=== PATIENT | female | born 1960 | race Caucasian/White ===

== ENCOUNTER → 2017-11-28 | Outpatient (CLI) | payer OTHER | LOC: LAB 15:41 | PROVIDERS: Nurse Practitioner Family | DX: Z01.419 Encounter for gynecological examination (general) (routine) without abnormal findings (principal) | CPT/HCPCS: G0145 ==

== ENCOUNTER 2018-02-16 11:55 | Day surgery (SDC) | payer OTHER ==
[~2018-02-16] VITALS: Ht 177.8 cm; Wt 81.7 kg
== END 2018-02-16 14:25 | disposition home or self-care (01) ==
LOC: ORSCSDS 11:55
PROVIDERS: Surgery
PROC: 0DJD8ZZ Inspection of Lower Intestinal Tract, Via Natural or Artificial Opening Endoscopic (ICD-10-PCS; principal; 2018-02-16 13:30)
DX: Z12.11 Encounter for screening for malignant neoplasm of colon (principal); K64.8 Other hemorrhoids; K75.9 Inflammatory liver disease, unspecified; Z87.891 Personal history of nicotine dependence; Z79.899 Other long term (current) drug therapy
CPT/HCPCS: J7120

== ENCOUNTER → 2018-12-17 | Outpatient (CLI) | payer OTHER ==
[2018-12-17 17:22] LABS: Red Blood Cells, Urine TNTC /hpf (0-2); Squamous Epithelial Cells Many /hpf (Few); White Blood Cells, Urine 25-50 /hpf (0-5)
[2018-12-17 17:23] LABS: Bacteria Mod /hpf
== END | disposition home or self-care (01) ==
LOC: LAB SHORT 17:01 → LAB EV 17:01
PROVIDERS: Physician Assistant
DX: R31.9 Hematuria, unspecified (principal)
CPT/HCPCS: 81015; 87086

== ENCOUNTER 2019-01-26 07:23 | Emergency (ER) | payer OTHER ==
[~2019-01-26] VITALS: Ht 177.8 cm; Wt 83.9 kg
[~2019-01-26 07:23] MED LIST: ATOR20; AZIT250; ONDA4ODT MM; Percocet 5-3251 EACH PO
[2019-01-26 08:39] LABS: BASOPHILS ABSOLUTE AUTO 0.07 K/mm3 (0.00-0.23); BASOPHILS PERCENT AUTO 1 % (0-2); EOSINOPHILS ABSOLUTE AUTO 0.18 K/mm3 (0.00-0.68); EOSINOPHILS PERCENT AUTO 2 % (0-6); Hematocrit 40.9 % (33.0-51.0); Hemoglobin 13.4 g/dL (11.5-16.0); IMMATURE GRAN ABSOLUTE AUTO 0.04 K/mm3 (0.00-0.10); IMMATURE GRAN PERCENT AUTO 0 % (0-1); LYMPHOCYTES ABSOLUTE AUTO 1.23 K/mm3 (0.84-5.20); LYMPHOCYTES PERCENT AUTO 11 % (21-46); MONOCYTES ABSOLUTE AUTO 0.54 K/mm3 (0.16-1.47); MONOCYTES PERCENT AUTO 5 % (4-13); Mean Corpuscular HGB 31.3 pg (26.0-34.0); Mean Corpuscular HGB Conc 32.8 g/dL (31.5-36.5); Mean Corpuscular Volume 96 fL (80-100); Mean Platelet Volume 9.9 fL (9.1-12.4); NEUTROPHILS PERCENT AUTO 81 % (41-73); Platelet Count 284 K/mm3 (150-400); RDW Standard Deviation 41.8 fL (35.1-46.3); Red Blood Cell Count 4.28 M/mm3 (3.80-5.20); White Blood Cell Count 10.86 K/mm3 (4.00-11.30)
[2019-01-26 08:57] LABS: Anion Gap 7 mmol/L (6-16); Blood Urea Nitrogen 12 mg/dL (8-24); Bun/Creatinine Ratio 15.9 (12.0-20.0); CO2, Blood 25 mmol/L (21-32); Calcium, Blood 8.5 mg/dL (8.5-10.1); Chloride, Blood 107 mmol/L (98-108); Creatinine, Blood 0.76 mg/dL (0.40-1.00); Glomerular Filtration Rate >60 (60-); Glucose, Blood 98 mg/dL (70-99); Sodium, Blood 139 mmol/L (136-145)
[2019-01-26 09:48] LABS: Source, Urine Clean Catch
[2019-01-26 09:52] LABS: Appearance, Urine Hazy (Clear); Bilirubin, Urine Neg (Neg); Blood, Urine 5+ (Neg); Color, Urine Yellow (P-Yellow); Glucose Qualitative, Urine Neg (Neg); Ketones, Urine Neg (Neg); Leukocyte Esterase, Urine 1+ (Neg); Nitrite, Urine Neg (Neg); Protein, Urine 2+ (Neg); Specific Gravity, Urine 1.015 (1.003-1.022); Urobilinogen, Urine NORM (Normal)
[2019-01-26 09:59] LABS: Bacteria Rare /hpf; Squamous Epithelial Cells Rare /hpf (Few)
== END 2019-01-26 10:48 | disposition home or self-care (01) ==
LOC: ER 07:23
PROVIDERS: Emergency Medicine
DX: N13.5 Crossing vessel and stricture of ureter without hydronephrosis (principal); Z87.891 Personal history of nicotine dependence
CPT/HCPCS: 36415; 74176; 80048; 81001; 85025; 96361; 96374; 96375; 99284-25; J1170; J2405; J7030

== ENCOUNTER → 2019-02-02 | Outpatient (CLI) | payer OTHER ==
[2019-02-02 13:15] LABS: Bilirubin, Urine Neg (Neg); Blood, Urine Neg (Neg); Glucose Qualitative, Urine Neg (Neg); Ketones, Urine Neg (Neg); Leukocyte Esterase, Urine Neg (Neg); Nitrite, Urine Neg (Neg); Protein, Urine Neg (Neg); Urobilinogen, Urine NORM (Normal)
[2019-02-02 13:28] LABS: Appearance, Urine Clear (Clear); Color, Urine Pale Yellow (P-Yellow)
== END | disposition home or self-care (01) ==
LOC: LAB SHORT 13:07 → LAB 13:07
PROVIDERS: Nurse Practitioner Family
DX: N20.0 Calculus of kidney (principal)
CPT/HCPCS: 81003

== ENCOUNTER 2019-03-11 08:23 | Day surgery (SDC) | payer OTHER ==
--- NOTE | 2019-03-11 08:55 | NUR ---
BROUGHT INTO SDS ADMISSION TO UNIT STARTED. VSS PULSE RANGING 58-70 BP 158/91
--- NOTE | 2019-03-11 09:07 | NUR ---
CALLED CT PERMISSION GIVEN FOR LEFT AC IV
--- NOTE | 2019-03-11 09:45 | NUR ---
DISCHARGED AT THIS TIME WITHOUT COMPLETING TEST. WAS TAKEN TO CT WHERE PRACTICED BREATHING BEFROE LTEST HEART RATE VARIED FOR 38 TO 72. AFTER SEVER TRIES LAB ANALYST CALLED DOCTOR AND TEST WAS ABORTED WITH NO CONTRAST EVER BEING GIVEN. PATIENT BROUGHT BACK TO STEP AND IV REMOVED AND PATIENT ALLOWED TO LEAVE. PATIENT AMBULATED OUT OF STEP.
== END 2019-03-11 22:42 | disposition home or self-care (01) ==
LOC: CT 08:23 → ORD 08:23 → CT 09:00 → ORD 22:42
DX: E78.5 Hyperlipidemia, unspecified (principal); R93.1 Abnormal findings on diagnostic imaging of heart and coronary circulation; Z79.899 Other long term (current) drug therapy; Z87.891 Personal history of nicotine dependence; Z88.8 Allergy status to other drugs, medicaments and biological substances; Z88.6 Allergy status to analgesic agent; Z88.5 Allergy status to narcotic agent

== ENCOUNTER 2019-05-05 21:38 | Emergency (ER) | payer OTHER ==
[~2019-05-05] VITALS: Ht 175.3 cm; Wt 82.5 kg
[2019-05-05] MEDS ORDERED: [UNRECOGNIZED DRUG - REMARK] (21:45)
== END 2019-05-05 22:53 | disposition home or self-care (01) ==
LOC: ER 21:38
DX: O90.0 Disruption of cesarean delivery wound (principal); Z88.6 Allergy status to analgesic agent; Z88.8 Allergy status to other drugs, medicaments and biological substances; Z88.1 Allergy status to other antibiotic agents; Z88.5 Allergy status to narcotic agent; Z79.899 Other long term (current) drug therapy; Z87.891 Personal history of nicotine dependence
CPT/HCPCS: 99283

== ENCOUNTER 2019-05-13 16:34 | Emergency (ER) | payer OTHER ==
[~2019-05-13] VITALS: Ht 175.3 cm; Wt 81.7 kg
[~2019-05-13 16:34] MED LIST changes: +[UNRECOGNIZED DRUG - REMARK]
[2019-05-13] MEDS ORDERED: ERYT1OIN BOTHEYES (17:22)
== END 2019-05-13 17:30 | disposition home or self-care (01) ==
LOC: ER 16:34
DX: T15.92XA Foreign body on external eye, part unspecified, left eye, initial encounter (principal); Z88.8 Allergy status to other drugs, medicaments and biological substances; Z88.6 Allergy status to analgesic agent; Z88.5 Allergy status to narcotic agent; Z88.1 Allergy status to other antibiotic agents; Z79.899 Other long term (current) drug therapy; Z87.891 Personal history of nicotine dependence
CPT/HCPCS: 67938; 99283-25

== ENCOUNTER 2019-05-13 18:01 | Emergency (ER) | payer OTHER ==
[~2019-05-13] VITALS: Ht 175.3 cm; Wt 81.7 kg
[~2019-05-13 18:01] MED LIST changes: +ERYT1OIN BOTHEYES
== END 2019-05-13 21:10 | disposition home or self-care (01) ==
LOC: ER 18:01
DX: S00.212A Abrasion of left eyelid and periocular area, initial encounter (principal); X58.XXXA Exposure to other specified factors, initial encounter
CPT/HCPCS: 99282

== ENCOUNTER 2019-06-09 08:18 | Day surgery (SDC) | payer OTHER ==
--- NOTE | 2019-06-09 09:43 | NUR ---
[address] ANGIOGRAM. METROPROLOL 5MG IVP WILL BE GIVEN TO GET HR <68 PER ORDERS. [id number] ROOM [address] ANGIOGRAM DUE TO IRREGULAR HR PER RADIOLOGIST. NO CONTRAST WAS GIVEN. [facility] DISCHARGED PT HOME. IV SITE DISCONTINUED.
== END 2019-06-09 22:34 | disposition home or self-care (01) ==
LOC: ORD 08:18 → CT 08:18 → ORD 08:30 → CT 09:00 → ORD 22:34
DX: R00.2 Palpitations (principal); R93.1 Abnormal findings on diagnostic imaging of heart and coronary circulation; E78.5 Hyperlipidemia, unspecified; I49.9 Cardiac arrhythmia, unspecified; Z53.09 Procedure and treatment not carried out because of other contraindication

== ENCOUNTER → 2019-12-29 | Outpatient (CLI) | payer OTHER ==
[2019-12-29 13:40] LABS: Microalbumin, Urine Quant. <5.000 mg/L (0.000-20.000)
== END | disposition home or self-care (01) ==
LOC: LAB 09:00 → LAB SHORT 09:00
PROVIDERS: Internal Medicine Nephrology
DX: N18.2 Chronic kidney disease, stage 2 (mild) (principal); D63.1 Anemia in chronic kidney disease; N25.81 Secondary hyperparathyroidism of renal origin; E55.9 Vitamin D deficiency, unspecified; E78.00 Pure hypercholesterolemia, unspecified; R80.9 Proteinuria, unspecified
CPT/HCPCS: 81050; 82043; 82570; 84156

== ENCOUNTER → 2021-12-06 | Outpatient (CLI) | payer OTHER | END | disposition home or self-care (01) | LOC: LAB SHORT 13:00 | DX: K52.9 Noninfective gastroenteritis and colitis, unspecified (principal) | CPT/HCPCS: 87015; 87045; 87046; 87205; 87899 ==

== ENCOUNTER → 2023-07-10 | Outpatient (CLI) | payer OTHER | LOC: LAB 09:50 → LAB SHORT 09:50 | DX: R10.9 Unspecified abdominal pain (principal) | CPT/HCPCS: 87086 ==

== ENCOUNTER → 2023-07-23 | Outpatient (CLI) | payer OTHER ==
[2023-07-23 12:41] LABS: BASOPHILS ABSOLUTE AUTO 0.11 K/mm3 (0.00-0.23); BASOPHILS PERCENT AUTO 2 % (0-2); EOSINOPHILS ABSOLUTE AUTO 0.32 K/mm3 (0.00-0.68); EOSINOPHILS PERCENT AUTO 5 % (0-6); Hematocrit 46.4 % (33.0-51.0); Hemoglobin 15.8 g/dL (11.5-16.0); IMMATURE GRAN ABSOLUTE AUTO 0.02 K/mm3 (0.00-0.10); IMMATURE GRAN PERCENT AUTO 0 % (0-1); LYMPHOCYTES ABSOLUTE AUTO 2.28 K/mm3 (0.84-5.20); LYMPHOCYTES PERCENT AUTO 36 % (21-46); MONOCYTES ABSOLUTE AUTO 0.49 K/mm3 (0.16-1.47); MONOCYTES PERCENT AUTO 8 % (4-13); Mean Corpuscular HGB Conc 34.1 g/dL (31.5-36.5); Mean Corpuscular Volume 94 fL (80-100); Mean Platelet Volume 10.2 fL (9.1-12.4); NEUTROPHILS ABSOLUTE AUTO 3.12 K/mm3 (1.96-9.15); NEUTROPHILS PERCENT AUTO 49 % (41-73); Platelet Count 240 K/mm3 (150-400); RDW Coefficient Variation 12.3 % (11.7-14.2); RDW Standard Deviation 42.5 fL (35.1-46.3); Red Blood Cell Count 4.93 M/mm3 (3.80-5.20); White Blood Cell Count 6.34 K/mm3 (4.00-11.30)
[2023-07-23 12:49] LABS: Albumin, Blood 4.2 g/dL (3.4-5.0); Albumin/Globulin Ratio 1.1 (0.8-1.8); Bilirubin, Total 0.4 mg/dL (0.1-1.0); Bun/Creatinine Ratio 15.2 (12.0-20.0); Calcium, Blood 9.3 mg/dL (8.5-10.1); Creatinine, Blood 0.99 mg/dL (0.40-1.00); Globulin, Blood 3.8 g/dL (2.2-4.0); Potassium, Blood 4.4 mmol/L (3.5-5.5)
== END | disposition home or self-care (01) ==
LOC: LAB 12:34 → LAB SHORT 12:34
PROVIDERS: Physician Assistant
DX: R10.31 Right lower quadrant pain (principal)
CPT/HCPCS: 80053; 83690; 85025

== ENCOUNTER 2023-12-17 08:06 | Day surgery (SDC) | payer MEDICARE, OTHER ==
[~2023-12-17] VITALS: Ht 180.3 cm; Wt 92.0 kg
[~2023-12-17 08:06] MED LIST changes: +ATOR10 PO; +Ativan1 MG PO; +B-121000 MC3 PO; +CALCIUM 500-VI1 EAC4 PO; +CALCIUM PO; +DOCU100 PO; +DOXYLAMINE SUCCINATE PO; +FLONASE ALLERG9.9 M2; +LIVER CLEANSE PO; +MULTI-VITAMIN1 EAC2 PO; +POTASSIUM CITRA5 M10 PO; +TOPROL XL25 MG PO; +TURMERIC500 M2 PO; +VITAMIN C125 MG PO; +VITAMIN E PO
[2023-12-17] MEDS ORDERED: Lactated Ringer's 1,000 ML IV ONE ×2 (08:44→09:08)
[2023-12-17] MEDS ORDERED: propofoL 50 ML IV ONE (09:08)
[2023-12-17] MEDS ORDERED: Lidocaine HCl 2% Jelly 120MG/6ML SYR (20MG PER ML) ONE (09:28)
--- NOTE | 2023-12-17 09:59 | NUR ---
12/17/23 0959 Terence Maya INCOMPLETE COLONOSCOPY D/T POOR PREP, CECUM NOT REACHED, REACHED MID TRANSVERSE.
[2023-12-17 10:08] VITALS: BP 106/66
== END 2023-12-17 10:20 | disposition home or self-care (01) ==
LOC: ORSCSDS 08:06
PROVIDERS: Internal Medicine Gastroenterology
PROC: 0DBN8ZX Excision of Sigmoid Colon, Via Natural or Artificial Opening Endoscopic, Diagnostic (ICD-10-PCS; principal; 2023-12-17 09:30)
DX: K62.5 Hemorrhage of anus and rectum (principal); K59.09 Other constipation; K63.5 Polyp of colon; K64.8 Other hemorrhoids; K75.81 Nonalcoholic steatohepatitis (NASH); E78.5 Hyperlipidemia, unspecified; Z87.891 Personal history of nicotine dependence; Z79.899 Other long term (current) drug therapy
CPT/HCPCS: 88305; A9270; J2704; J7120

== ENCOUNTER → 2025-04-12 | Outpatient (CLI) | payer MEDICARE, OTHER ==
[~2025-04-12] MED LIST changes: +ASCORBIC ACID PO
== END ==
LOC: LAB SHORT 12:20 → LAB 12:20
DX: T14.8XXA Other injury of unspecified body region, initial encounter (principal)
CPT/HCPCS: 87070; 87077; 87186; 87205

== ENCOUNTER 2025-08-15 19:25 | Emergency (ER) | payer MEDICARE, OTHER ==
[~2025-08-15] VITALS: Ht 177.8 cm; Wt 90.7 kg
[2025-08-15 19:45] LABS: BASOPHILS ABSOLUTE AUTO 0.19 K/mm3 (0.00-0.23); BASOPHILS PERCENT AUTO 2 % (0-2); EOSINOPHILS ABSOLUTE AUTO 1.14 K/mm3 (0.00-0.68); EOSINOPHILS PERCENT AUTO 12 % (0-6); Hematocrit 43.8 % (33.0-51.0); Hemoglobin 15.2 g/dL (11.5-16.0); IMMATURE GRAN ABSOLUTE AUTO 0.03 K/mm3 (0.00-0.10); IMMATURE GRAN PERCENT AUTO 0 % (0-1); LYMPHOCYTES ABSOLUTE AUTO 2.81 K/mm3 (0.84-5.20); LYMPHOCYTES PERCENT AUTO 30 % (21-46); MONOCYTES ABSOLUTE AUTO 0.61 K/mm3 (0.16-1.47); MONOCYTES PERCENT AUTO 7 % (4-13); Mean Corpuscular HGB Conc 34.7 g/dL (31.5-36.5); Mean Corpuscular Volume 94 fL (80-100); NEUTROPHILS ABSOLUTE AUTO 4.61 K/mm3 (1.96-9.15); NEUTROPHILS PERCENT AUTO 49 % (41-73); NRBC ABSOLUTE 0.00 K/mm3 (0.00-0.02); NRBC Auto 0.0 /100 WBC (0.0-0.2); Platelet Count 207 K/mm3 (150-400); RDW Coefficient Variation 12.3 % (11.7-14.2); RDW Standard Deviation 42.4 fL (35.1-46.3)
[2025-08-15 20:02] LABS: Alanine Aminotransfer (ALT/SGP 85.0 U/L (12-78); Albumin, Blood 4.4 g/dL (3.4-5.0); Albumin/Globulin Ratio 1.3 (0.8-1.8); Anion Gap 8.0 mmol/L (3-11); Aspartate Aminotrans (AST/SGOT 46.0 U/L (12-37); Bilirubin, Total 0.5 mg/dL (0.1-1.0); Blood Urea Nitrogen 14.0 mg/dL (8-24); CO2, Blood 26.0 mmol/L (21-32); Calcium, Blood 9.5 mg/dL (8.5-10.1); Chloride, Blood 106.0 mmol/L (98-108); Creatinine, Blood 0.79 mg/dL (0.40-1.00); Globulin, Blood 3.4 g/dL (2.2-4.0); Glucose, Blood 105.0 mg/dL (70-99); Potassium, Blood 4.0 mmol/L (3.5-5.5); Sodium, Blood 136.0 mmol/L (136-145); Total Protein, Blood 7.8 g/dL (6.4-8.2)
[2025-08-15 23:12] VITALS: BP 122/88
== END 2025-08-15 23:49 | disposition home or self-care (01) ==
LOC: ER 19:25
PROVIDERS: Student in an Organized Health Care Education/Training Program
DX: R07.9 Chest pain, unspecified (principal); R74.01 Elevation of levels of liver transaminase levels; Z88.8 Allergy status to other drugs, medicaments and biological substances; Z88.6 Allergy status to analgesic agent; Z88.5 Allergy status to narcotic agent; Z79.899 Other long term (current) drug therapy; Z87.891 Personal history of nicotine dependence
CPT/HCPCS: 71046; 80053; 83690; 84484; 85025